=== PATIENT | female | born 1995 | race Caucasian/White ===

== ENCOUNTER 2022-04-24 03:24 | Inpatient (IN) | payer BC ==
[2022-04-24] MEDS ORDERED: Promethazine HCl 25 MG/ML VIAL IM PRN ×2 (04:55→13:56)
[2022-04-24] MEDS ORDERED: Lactated Ringer's 1,000 ML IV PRN (04:55)
[2022-04-24] MEDS ORDERED: Ondansetron PF 4 MG/2 ML Vial IVP PRN ×2 (04:55→13:56)
[2022-04-24] MEDS ORDERED: hydrALAZINE 20 MG/ML VIAL SLOW IVP PRN ×2 (04:55→21:07)
[2022-04-24] MEDS ORDERED: Misoprostol 200 MCG TAB PR PRN (04:55)
[2022-04-24] MEDS ORDERED: Lidocaine 1% (PF) 30 ML VIAL SC PRN (04:55)
[2022-04-24] MEDS ORDERED: Butorphanol Tartrate 1 MG/ML VIAL SLOW IVP PRN (04:55)
[2022-04-24] MEDS ORDERED: NS w/ Oxytocin 30 units 500 ML IV SCH ×3 (05:00→21:07)
[2022-04-24] MEDS ORDERED: Ibuprofen 800 MG TAB PO PRN (05:01)
[2022-04-24] MEDS ORDERED: HYDROcodone/Acetaminophen 5/325 mg Tablet PO PRN ×4 (05:01→21:07)
[2022-04-24 05:16] LABS: Hemoglobin 12.2 g/dL (12.0-15.5); Mean Corpuscular HGB CONC 33.7 g/dL (32.0-36.0); Mean Corpuscular Hemoglobin 28.7 pg (27.0-33.0); Mean Corpuscular Volume 85.2 fl (81.6-98.3); Mean Platelet Volume 9.9 fl (7.4-10.4); Platelet Count 290 10x3/uL (150-450); RBC Distribution Width 12.6 % (11.5-14.5); Red Blood Cell (RBC) Count 4.25 10x6/uL (3.90-5.03); White Blood Cell (WBC) Count 10.7 10x3/uL (3.5-10.5)
[2022-04-24 05:49] LABS: Syphilis Antibody Nonreactive (Nonreactive); Syphilis Antibody Index 0.03 S/CO (<1.00 Non-Reactive)
[2022-04-24 05:50] LABS: HBSAg Index 0.15 S/CO (0-0.99); Hep B Surf Ag Non-Reactive S/CO (NonReactive)
[2022-04-24] MEDS ORDERED: Penicillin G Potassium 5 MILL.UNITS in Sodium Chloride 0.9% 100 ML IVPB SCH (06:15)
[2022-04-24] MEDS ORDERED: Bupivacaine 0.25% HCL 30 ML VIAL ONE (08:00)
[2022-04-24 08:11] VITALS: BMI 41.5
[2022-04-24] MEDS ORDERED: Pen G 2.5 MILL.UNITS/50 ML BAG IVPB SCH (09:00)
[2022-04-24] MEDS: Penicillin G 2.5 MILL.units 50 ML IVPB SCH ×4 (10:59→21:43)
[2022-04-24] MEDS: Misoprostol 100 MCG TAB PO SCH ×3 (11:01→21:43)
[2022-04-24 12:03] LABS: SARS-CoV-2 NAA Rapid Test Not Detected (NotDetected)
[2022-04-24] MEDS ORDERED: Fentanyl 2 mcg/Bup 0.1% Cadd 100 ML ONE (12:24)
[2022-04-24] MEDS ORDERED: Acetaminophen 325 MG TAB PO PRN (13:56)
[2022-04-24] MEDS ORDERED: Moisturizing Cream (Eucerin) 113 GM JAR TOP PRN (13:56)
[2022-04-24] MEDS ORDERED: Naloxone HCl 0.4 mg/ml Vial IVP PRN ×2 (13:56)
[2022-04-24] MEDS ORDERED: Lactated Ringer's 500 ML IV PRN (13:56)
[2022-04-24] MEDS ORDERED: diphenhydrAMINE 50 MG/ML VIAL IVP PRN (13:56)
[2022-04-24] MEDS ORDERED: ePHEDrine Sulfate 50 MG/10 ML VIAL SLOW IVP PRN (13:56)
[2022-04-24] MEDS ORDERED: Communication Order-Pharmacy FS SCH (14:00)
[2022-04-24] MEDS ORDERED: Fentanyl 2 mcg/Bupivacaine 0.1% Cassette 100 ML EPIDURAL SCH (14:00)
[2022-04-24] MEDS ORDERED: Bisacodyl 10 MG SUPP PR PRN (21:07)
[2022-04-24] MEDS ORDERED: Boostrix 0.5 ML (Tdap) VIAL (>/=7 yrs of age) IM ONE (21:07)
[2022-04-24] MEDS ORDERED: Milk Of Magnesia 30 ML UDCUP PO PRN (21:07)
[2022-04-24] MEDS ORDERED: Benzocaine-Menthol 82.5 ML CAN TOP PRN (21:07)
[2022-04-24] MEDS ORDERED: Misoprostol 200 MCG TAB VAG PRN (21:07)
[2022-04-24] MEDS ORDERED: Lanolin Ointment 7 GM TUBE TOP PRN (21:07)
[2022-04-24] MEDS: Ibuprofen 800 MG TAB PO SCH (21:28)
[2022-04-24] MEDS: Docusate 100 MG CAP PO SCH (22:59)
[2022-04-25] MEDS: Ibuprofen 800 MG TAB PO SCH ×3 (05:38→21:13)
[2022-04-25] MEDS: Ferrous Sulfate 325 MG TAB PO SCH ×2 (09:08→16:33)
[2022-04-25] MEDS: Docusate 100 MG CAP PO SCH ×2 (09:10→21:12)
[2022-04-25] MEDS: Prenatal Vitamin 1 TAB PO SCH (09:10)
[2022-04-26] MEDS: Ibuprofen 800 MG TAB PO SCH (05:18)
[2022-04-26 07:58] VITALS: BP 109/63; TEMP 97.6
[2022-04-26] MEDS: Prenatal Vitamin 1 TAB PO SCH (09:06)
[2022-04-26] MEDS: Docusate 100 MG CAP PO SCH (09:06)
[2022-04-26] MEDS: Ferrous Sulfate 325 MG TAB PO SCH (09:44)
== END 2022-04-26 14:45 | disposition home or self-care (01) | DRG 807 ==
LOC: CSHLD/OP 03:24 → CSHLD 04:55 → CSHPP 23:12
PROVIDERS: ADMIT Obstetrics & Gynecology; ATTEND Obstetrics & Gynecology
PROC: 10E0XZZ Delivery of Products of Conception, External Approach (ICD-10-PCS; principal; 2022-04-24)
PROC: 0KQM0ZZ Repair Perineum Muscle, Open Approach (ICD-10-PCS; 2022-04-24)
DX: O42.02 Full-term premature rupture of membranes, onset of labor within 24 hours of rupture (principal); Z37.0 Single live birth; Z20.822 Contact with and (suspected) exposure to COVID-19; Z3A.37 37 weeks gestation of pregnancy; O70.1 Second degree perineal laceration during delivery; Z67.90 Unspecified blood type, Rh positive; O75.89 Other specified complications of labor and delivery
CPT/HCPCS: 51702; 85027; 86780; 86850; 86900; 86901; 87340; 99285; J2405; J2540; J2590; J3490; S0020; U0002